=== PATIENT | female | born 1975 | race Caucasian/White ===

== ENCOUNTER 2016-04-07 18:40 | Emergency (ER) | payer MEDICAID ==
[~2016-04-07] VITALS: Ht 165.1 cm; Wt 80.0 kg
[~2016-04-07 18:40] MED LIST: DOXY100T PO
[2016-04-07 18:44] VITALS: BP 128/79; PULSE 79; RESP 15; TEMP 98.2; O2SAT 98
--- NOTE | 2016-04-07 20:15 | PD ---
HPI Chief Complaint: Pain: Acute or Chronic Time Seen by Provider: 20:09 Travel History International Travel<30 days: No Contact w/Intl Traveler<30days: No Traveled to known affect area: No History of Present Illness HPI 40-year-old white female presents to emergency department with a one-week history of lower back pain. She states that the pain has progressively come on without injury. She does report a history of kidney stones in the past. She states that she was unsure whether this was her kidneys or possibly her back. She has been drinking a large amount of cranberry juice. She states the pain is moderate but can be severe with movement or laying. She states that the pain to be so severe it causes her to feel nausea. She denies any vomiting. No dysuria or frequency. No hematuria. No abdominal pain. No numbness, tingling or weakness. No trauma. PFSH Past Medical History Narrative Medical Kidney stones, ovarian cysts Blood Disorders: No Cancer: No Cardiovascular Problems: No Diabetes: No Diminished Hearing: No Endocrine: No Genitourinary: No Immune Disorder: No Musculoskeletal: Yes (RIGHT HAND SURGERY) Neurologic: No Psychiatric: No Reproductive: Yes Respiratory: No Immunizations Current: No Thyroid Disease: No Tetanus Vaccination: < 5 Years ?: Unknown LMP: 03/17/16 : 4 Para: 4 Miscarriage: 1 : 0 Ovarian Cysts: Yes (BILATERAL ) Past Surgical History Narrative Surgical Left hand surgery, left salpingo-oophorectomy Gynecologic Surgery: Yes (left ovary removed) Other Surgery: Yes (olvary removed ) Social History Alcohol Use: No Tobacco Use: Yes (3 cigarettes day ) Substance Use: No Allergies-Medications (Allergen,Severity, Reaction): Coded Allergies: No Known Allergies (Verified , 09/16/15) Reported Meds & Prescriptions Reported Meds & Active Scripts Active Flexeril (Cyclobenzaprine HCl) 10 Mg Tab 10 Mg PO TID Diclofenac Sodium DR (Diclofenac Sodium) 50 Mg Tabdr 50 Mg PO TID Doxycycline Hyclate 100 mg (Doxycycline Hyclate) 100 Mg Tab 100 Mg PO BID 14 Days Review of Systems Except as stated in HPI: all other systems reviewed are Neg Physical Exam Narrative GENERAL: Well-developed, well-nourished in no acute distress. Nontoxic appearing. HEAD: Normocephalic, atraumatic. EYES: Pupils equal round and reactive. Extraocular motions intact. No scleral icterus. No injection or drainage. ENT: TMs clear without erythema. The external auditory canals clear. Nose: clear . Posterior pharynx is pink and moist. No tonsillar edema or exudate. Uvula midline. Airway patent. NECK: Trachea midline.Supple, nontender, moves head freely. No central bony tenderness or spasm. CARDIOVASCULAR: Regular rate and rhythm without murmurs, gallops, or rubs. RESPIRATORY: Clear to auscultation. Breath sounds equal bilaterally. No wheezes , rales, or rhonchi. GASTROINTESTINAL: Abdomen soft, non-tender, nondistended. No hepato-splenomegaly , or palpable masses. No guarding. EXTREMITIES: No clubbing, cyanosis, or edema. No joint tenderness, effusion, or edema noted. BACK: No central bony tenderness to palpation of the dorsal lumbar spine. Patient does have reproducible lumbar paraspinal tenderness. No gross spasm. Sits up in bed at 90. No saddle anesthesia. Without deformity or crepitance. No flank tenderness. Data Data Last Documented VS Vital Signs Date Time Temp Pulse Resp B/P Pulse Ox O2 Delivery O2 Flow Rate FiO2 04/07/16 18:44 98.2 79 15 128/79 98 Orders Urinalysis - C+S If Indicated (04/07/16 20:07) Acetamin-Hydrocod 325-5 Mg ([place] 5-325 (04/07/16 22:00) Cyclobenzaprine (Flexeril) (04/07/16 22:00) Labs Laboratory Tests Test 04/07/16 21:00 Urine Color YELLOW Urine Turbidity HAZY Urine pH 6.5 Urine Specific [place] 1.021 Urine Protein TRACE mg/dL Urine Glucose (UA) NEG mg/dL Urine Ketones NEG mg/dL Urine Occult Blood NEG Urine Nitrite NEG Urine Bilirubin NEG Urine Urobilinogen LESS THAN 2.0 MG/DL Urine Leukocyte Esterase NEG Urine RBC LESS THAN 1 /hpf Urine WBC 1 /hpf Urine Squamous Epithelial 5 /hpf Cells Urine Mucus FEW /lpf Microscopic Urinalysis Comment CULT NOT INDICATED MDM Medical Decision Making Medical Screen Exam Complete: Yes Emergency Medical Condition: Yes Medical Record Reviewed: Yes Interpretation(s) Laboratory Tests Test 04/07/16 21:00 Urine Color YELLOW Urine Turbidity HAZY Urine pH 6.5 Urine Specific [place] 1.021 Urine Protein TRACE mg/dL Urine Glucose (UA) NEG mg/dL Urine Ketones NEG mg/dL Urine Occult Blood NEG Urine Nitrite NEG Urine Bilirubin NEG Urine Urobilinogen LESS THAN 2.0 MG/DL Urine Leukocyte Esterase NEG Urine RBC LESS THAN 1 /hpf Urine WBC 1 /hpf Urine Squamous Epithelial 5 /hpf Cells Urine Mucus FEW /lpf Microscopic Urinalysis Comment CULT NOT INDICATED Differential Diagnosis MDM: High Differential diagnoses: AAA,Fracture, sprain, strain, HNP, nerve or vascular injury, epidural abscess, pilonidal cyst, pyelonephritis, UTI, nephrolithiasis, ureterolithiasis Narrative Course Urinalysis obtained. Urinalysis negative. Patient is given Lortab 5 milligram by mouth and Flexeril 10 mg by mouth. This is back pain Diagnosis Primary Impression: Back pain Qualified Code: M54.5 - Acute bilateral low back pain without sciatica Patient Instructions: General Instructions, Narcotic given in the ED Departure Forms: Tests/Procedures, Work Release Special Instructions: No work 2-3 days. Med/Other Pt SpecificInfo: Prescription(s) given Scripts Cyclobenzaprine (Flexeril)10 Mg Tab10 Mg PO TID #30 TAB Prov:Delroy Haji MD 04/07/[address] 50 Mg Tabdr50 Mg PO TID #30 TAB Prov:Delroy Haji MD 04/07/16 Disposition: 01 DISCHARGE HOME Condition: Stable Alfred Seymour Apr 07, 2016 20:15
[2016-04-07 21:51] LABS: BLOOD, URINE NEG (NEG); COMMENT (UR) CULT NOT INDICATED; CULTURE IF INDICATED CULT NOT INDICATED; GLUCOSE,URINE NEG (NEG); KETONE, URINE NEG (NEG); MUCUS URINE FEW /lpf (OCC); NITRITE,URINE NEG (NEG); PH, URINE 6.5 (5.0-8.5); SQUAMOUS EPITHELIAL CELL URINE 5 /hpf (0-5); URINE COLOR YELLOW (YELLW/STRAW)
[2016-04-07] MEDS ORDERED: DICL50TA3 PO (21:58)
[2016-04-07] MEDS ORDERED: CYCL1TAB29 PO (21:58)
[2016-04-07] MEDS ORDERED: ACETAMINOPHEN/HYDROcodone 325 MG/5 MG TAB PO ONE (22:00)
[2016-04-07] MEDS ORDERED: CYCLOBENZAPRINE HCL 10 MG TAB PO ONE (22:00)
== END 2016-04-07 22:08 | disposition home or self-care (01) ==
LOC: NEPB 18:40
DX: M54.5 Low back pain (principal); Z87.442 Personal history of urinary calculi; F17.210 Nicotine dependence, cigarettes, uncomplicated
CPT/HCPCS: 81001; 99283

== ENCOUNTER 2017-08-30 20:43 | Emergency (ER) | payer MEDICAID ==
[~2017-08-30] VITALS: Ht 165.1 cm; Wt 90.0 kg
[~2017-08-30 20:43] MED LIST changes: +CYCL10TA PO; +DICL50TA3 PO
[2017-08-30] MEDS ORDERED: IOHEXOL 350 MG/ML 10 ML VIAL (for RAD DIAG) IVCONTRAST ONE (20:44)
[2017-08-30 21:10] VITALS: BP 153/93; PULSE 114; RESP 20; O2SAT 98
[2017-08-30] MEDS ORDERED: SODIUM CHLOR 0.9% 1000 ML INJ 1,000 ML IV SCH (21:51)
--- NOTE | 2017-08-30 21:57 | PD ---
HPI Chief Complaint: Chest Pain Time Seen by Provider: 21:18 Travel History International Travel<30 days: No Contact w/Intl Traveler<30days: No Traveled to known affect area: No History of Present Illness HPI 42-year-old female presents emergency department with 3 week history of upper respiratory congestion, sinus drainage, itching eyes, postnasal drip, neck swelling, and cough and wheeze. Patient has been seen 3 times a [facility] without improvement. She was treated with an antibiotic, prednisone , [place], and albuterol metered-dose inhaler without significant improvement. Patient states her cough is nonproductive. She is most concerned of her neck swelling, which is nontender. She denies significant fever, chills , or other symptoms. She does have chest congestion and wheezing, as well as sinus pressure and headache. She is concerned that she just does not seem to get better despite treatment. She complains of bilateral eyelid itching and rash as well. Patient's pain is 3 out of 10. She denies difficulty swallowing or breathing in terms of her throat. She has no sore throat. She has no ear pain or drainage. She was prescribed Flonase but could not take it as it "burned her nostrils out". Patient continues to smoke. She is not taking an anti-allergy medication other than the prednisone. She has no known drug allergies. PFSH Past Medical History Blood Disorders: No Cancer: No Cardiovascular Problems: No Chest Pain: Yes Diabetes: No Diminished Hearing: No Endocrine: No Gastrointestinal Disorders: No Genitourinary: No Immune Disorder: No Implanted Vascular Access Dvce: No Musculoskeletal: Yes (RIGHT HAND SURGERY) Neurologic: No Psychiatric: No Reproductive: Yes Respiratory: No Immunizations Current: No Thyroid Disease: No ?: Unknown : 4 Para: 4 Miscarriage: 1 : 0 Ovarian Cysts: Yes (BILATERAL ) Past Surgical History Gynecologic Surgery: Yes (left ovary removed) Other Surgery: Yes (olvary removed ) Social History Alcohol Use: No Tobacco Use: Yes (3 cigarettes day ) Substance Use: No Allergies-Medications (Allergen,Severity, Reaction): Coded Allergies: No Known Allergies (Verified , 09/16/15) Reported Meds & Prescriptions Reported Meds & Active Scripts Active Flexeril (Cyclobenzaprine HCl) 10 Mg Tab 10 Mg PO TID Diclofenac Sodium DR (Diclofenac Sodium) 50 Mg Tabdr 50 Mg PO TID Doxycycline Hyclate 100 mg (Doxycycline Hyclate) 100 Mg Tab 100 Mg PO BID 14 Days Review of Systems Except as stated in HPI: all other systems reviewed are Neg General / Constitutional: No: Fever, Chills Eyes: No: Visual changes HENT: Positive: Headaches, Rhinitis, Rhinorrhea, Congestion, Neck Pain, Other ( See history of present illness per), No: Vertigo, Lightheadedness, Sore Throat, Nosebleed, Neck Stiffness, Masses, Gingival Bleeding, Dental Difficulties, Ear Discharge, Earache Cardiovascular: No: Chest Pain or Discomfort Respiratory: Positive: Cough, Shortness of Breath, Wheezing, No: Sneezing Gastrointestinal: No: Nausea, Vomiting, Diarrhea, Abdominal Pain Genitourinary: No: Dysuria Musculoskeletal: No: Pain Skin: No Rash Neurologic: No: Weakness Psychiatric: No: Depression Endocrine: No: Polydipsia Hematologic/Lymphatic: No: Easy Bruising Physical Exam Narrative GENERAL: Patient appears anxious, but otherwise speaking in full sentences and in no obvious distress per SKIN: Warm and dry. Normal color. Normal turgor. Patient does have some mild rash to the right eyelids, but not the left. HEAD: Atraumatic. Normocephalic. Sinuses are full and congested with palpation and percussion but not painful EYES: Pupils equal and round. No scleral icterus. No injection or drainage. ENT: No nasal bleeding or discharge. Mucous membranes pink and moist. TMs are clear bilaterally. Patient has clear rhinitis. Turbinates are swollen bilaterally with inspection of the nares. Posterior pharynx is unremarkable without significant swelling or erythema or postnasal drip noted. NECK: Trachea midline. Supple and nontender. Patient complains of swelling and tenderness although there is no point tenderness or palpable lymphadenopathy. This is difficult to assess due to the patient's body habitus. CARDIOVASCULAR: Regular rate and rhythm. Tachycardic at 114 bpm. No murmurs appreciated. Normal rhythm. RESPIRATORY: No accessory muscle use. Mild diffuse wheezing throughout to auscultation. Breath sounds equal bilaterally. GASTROINTESTINAL: Abdomen soft, non-tender, nondistended. Hepatic and splenic margins not palpable. MUSCULOSKELETAL: Extremities without clubbing, cyanosis, or edema. No obvious deformities. NEUROLOGICAL: Awake and alert. No obvious cranial nerve deficits. Motor grossly within normal limits. Five out of 5 muscle strength in the arms and legs. Normal speech. PSYCHIATRIC: Appropriate mood and affect; insight and judgment normal. Data Data Last Documented VS Vital Signs Date Time Temp Pulse Resp B/P (MAP) Pulse Ox O2 Delivery O2 Flow Rate FiO2 08/30/17 21:10 114 20 153/93 (113) 98 Orders Orders Complete Blood Count With Diff (08/30/17 21:51) Comprehensive Metabolic Panel (08/30/17 21:51) Ecg Monitoring (08/30/17 21:51) Iv Access Insert/Monitor (08/30/17 21:51) Oximetry (08/30/17 21:51) Diphenhydramine Inj (Benadryl Inj) (08/30/17 22:00) Methylprednisolone So Succ Inj (Solumedr (08/30/17 22:00) Famotidine Inj (Pepcid Inj) (08/30/17 22:00) Albuterol-Ipratropium Neb (Duoneb Neb) (08/30/17 22:00) Sodium Chlor 0.9% 1000 Ml Inj (Ns 1000 M (08/30/17 21:51) Sodium Chloride 0.9% Flush (Ns Flush) (08/30/17 22:00) Ct Soft Tiss Neck W Iv Cont (08/30/17 21:51) Chest, Single Ap (08/30/17 22:01) Prothrombin Time / Inr (Pt) (08/30/17 22:04) Act Partial Throm Time (Ptt) (08/30/17 22:04) Ct Pulmonary Angiogram (08/30/17 22:04) Labs Laboratory Tests Test 08/30/17 22:00 White Blood Count 16.2 TH/MM3 Red Blood Count 4.52 MIL/MM3 Hemoglobin 13.7 GM/DL Hematocrit 39.9 % Mean Corpuscular Volume 88.3 FL Mean Corpuscular Hemoglobin 30.3 PG Mean Corpuscular Hemoglobin Concent 34.4 % Red Cell Distribution Width 13.5 % Platelet Count 348 TH/MM3 Mean Platelet Volume 7.9 FL Neutrophils (%) (Auto) 63.0 % Lymphocytes (%) (Auto) 27.0 % Monocytes (%) (Auto) 6.2 % Eosinophils (%) (Auto) 2.7 % Basophils (%) (Auto) 1.1 % Neutrophils # (Auto) 10.2 TH/MM3 Lymphocytes # (Auto) 4.4 TH/MM3 Monocytes # (Auto) 1.0 TH/MM3 Eosinophils # (Auto) 0.4 TH/MM3 Basophils # (Auto) 0.2 TH/MM3 CBC Comment DIFF FINAL Differential Comment Prothrombin Time 9.4 SEC Prothromb Time International Ratio 0.9 RATIO Activated Partial Thromboplast Time 22.6 SEC Blood Urea Nitrogen 19 MG/DL Creatinine 1.37 MG/DL Random Glucose 104 MG/DL Total Protein 7.6 GM/DL Albumin 3.8 GM/DL Calcium Level 9.0 MG/DL Alkaline Phosphatase 118 U/L Aspartate Amino Transf (AST/SGOT) 15 U/L Alanine Aminotransferase (ALT/SGPT) 22 U/L Total Bilirubin 0.2 MG/DL Sodium Level 140 MEQ/L Potassium Level 3.2 MEQ/L Chloride Level 103 MEQ/L Carbon Dioxide Level 27.4 MEQ/L Anion Gap 10 MEQ/L Estimat Glomerular Filtration Rate 42 ML/MIN [facility] Medical Decision Making Medical Screen Exam Complete: Yes Emergency Medical Condition: Yes Differential Diagnosis Allergic rhinitis. Neck swelling. Lymphadenopathy. Wheezy bronchitis. Asthma. COPD. PE. Narrative Course Patient is anxious but appears medically stable at time of exam Labs ordered including CBC and CMP. IV access is obtained and the patient is given 25 mg diphenhydramine IV, 20 mg Pepcid IV, 125 mg methylprednisone IV, and 1000 mL of normal saline bolus. Chest x-ray is ordered as well as CT of the soft tissues of the neck with IV contrast. Coagulation studies and CTA is ordered as the patient is hypertensive and tachycardic although her O2 sats are normal. This will rule out PE. CBC shows a leukocytosis of 16.2. Neutrophils are elevated at 10.2 Coagulation study shows a PT of 9.4, INR 0.9. Chemistries show potassium slightly low at 3.2, BUN 19, creatinine is elevated at 1.37, GFR is 42, alk phos is elevated at 118 otherwise no significant findings Chest x-ray showed no acute process per radiologist. CT is still pending. Patient is discussed with Dr. Mendoza who assumes care of the patient at 2300 hrs. She will determine final disposition and treatment Condition: Dillon Modi August 30, 2017 21:57
[2017-08-30] MEDS ORDERED: SODIUM CHLORIDE 0.9% FLUSH 10 ML FLUSH IV FLUSH PRN (22:00)
[2017-08-30] MEDS ORDERED: FAMOTIDINE 20 MG/2 ML VIAL IV PUSH ONE (22:00)
[2017-08-30] MEDS ORDERED: methylPREDNISolone SOD SUCC 125 MG/2 ML VIAL IV PUSH ONE (22:00)
[2017-08-30] MEDS ORDERED: diphenhydrAMINE HCL 50 MG/ML VIAL IVP ONE (22:00)
[2017-08-30] MEDS ORDERED: RESP: ALBUTEROL 2.5 MG/IPRATROPIUM 0.5 MG NEB (SCH) INH ONE (22:00)
[2017-08-30 22:14] LABS: AUTOMATED NEUTROPHIL # 10.2 TH/MM3 (1.8-7.7); BASOPHIL # 0.2 TH/MM3 (0-0.2); BASOPHIL % 1.1 % (0.0-2.0); EOSINOPHIL # 0.4 TH/MM3 (0-0.4); EOSINOPHIL % 2.7 % (0.0-4.0); HEMATOCRIT 39.9 % (35.0-46.0); HEMOGLOBIN 13.7 GM/DL (11.6-15.3); LYMPHOCYTE # 4.4 TH/MM3 (1.0-4.8); MEAN CELL VOLUME 88.3 FL (80.0-100.0); MEAN CORPUSCULAR HEMOGLOBIN 30.3 PG (27.0-34.0); MEAN CORPUSCULAR HGB CONC 34.4 % (32.0-36.0); MEAN PLATELET VOLUME 7.9 FL (7.0-11.0); MONO % 6.2 % (0.0-8.0); PLATELET COUNT 348 TH/MM3 (150-450); RED BLOOD COUNT 4.52 MIL/MM3 (4.00-5.30); RED CELL DISTRIBUTION WIDTH 13.5 % (11.6-17.2); WHITE BLOOD COUNT 16.2 TH/MM3 (4.0-11.0)
[2017-08-30 22:34] LABS: INTERNATIONAL NORMALIZED RATIO 0.9 RATIO; PROTHROMBIN TIME - PATIENT 9.4 SEC (9.8-11.6)
[2017-08-30 22:44] LABS: ALBUMIN 3.8 GM/DL (3.4-5.0); AST (GOT) 15 U/L (15-37); BICARBONATE 27.4 MEQ/L (21.0-32.0); BLOOD UREA NITROGEN 19 MG/DL (7-18); CHLORIDE 103 MEQ/L (98-107); CREATININE 1.37 MG/DL (0.50-1.00); GLOMERULAR FILTRATION RATE 42 ML/MIN (>89); GLUCOSE,RANDOM 104 MG/DL (74-106); SODIUM (NA) 140 MEQ/L (136-145)
[2017-08-30 22:47] LABS: ALKALINE PHOSPHATASE 118 U/L (45-117); ALT (GPT) 22 U/L (10-53); TOTAL BILIRUBIN ADULT 0.2 MG/DL (0.2-1.0); TOTAL PROTEIN 7.6 GM/DL (6.4-8.2)
--- NOTE | 2017-08-30 22:50 | RADRPT ---
EXAM DATE: 08/30/2017 10:47 PM EDT AGE/SEX: 42 years / Female INDICATIONS: Shortness of breath. CLINICAL DATA: This is the patient's initial encounter. Patient reports that signs and symptoms have been present for 1 day and indicates a pain score of 0/10. MEDICAL/SURGICAL HISTORY: None. None. COMPARISON: No prior [facility] exams available for comparison. FINDINGS: A single AP view of the chest demonstrates the lungs to be symmetrically aerated without evidence of mass, infiltrate or effusion. The cardiomediastinal contours are unremarkable. Osseous structures a re intact. CONCLUSION: 1. No acute cardiopulmonary disease. Electronically signed by: Jamie Roberts MD 08/30/2017 10:48 PM EDT
--- NOTE | 2017-08-31 00:18 | RADRPT ---
EXAM DATE: 08/31/2017 12:07 AM EDT AGE/SEX: 42 years / Female INDICATIONS: Chest pain with shortness of breath. CLINICAL DATA: This is the patient's initial encounter. Patient reports that signs and symptoms have been present for 3 weeks and indicates a pain score of 3/10. MEDICAL/SURGICAL HISTORY: . . RADIATION DOSE: 18.49 CTDI (mGy) COMPARISON: No prior exams available for comparison. TECHNIQUE: Volumetric scanning was performed using a multi-row detector CT scanner during bolus infu maritza of 100 ml Omnipaque 350 (iohexol) nonionic water-soluble contrast as a cumulative dose for mult iple exams. The data was post processed with a variety of visualization algorithms including full vol ume maximum intensity projection and sliding thin slab reformation. Using automated exposure control and adjustment of the mA and/or kV according to patient size, radiation dose was kept as low as reas onably achievable to obtain optimal diagnostic quality images. FINDINGS: The lungs are clear without infiltrate, nodule, or mass. There is no pleural effusion. No appreciab le pathological adenopathy is seen within the mediastinum. There is no evidence of PE for technique. There is a tiny subcentimeter cyst in the right hepatic lobe. CONCLUSION: Unremarkable study. Electronically signed by: Kathy Gomez MD 08/31/2017 12:17 AM EDT
--- NOTE | 2017-08-31 00:23 | RADRPT ---
EXAM DATE: 08/31/2017 12:10 AM EDT AGE/SEX: 42 years / Female INDICATIONS: Neck swelling with sinus pressure past 3 weeks. CLINICAL DATA: This is the patient's initial encounter. Patient reports that signs and symptoms have been present for 3 weeks and indicates a pain score of 8/10. MEDICAL/SURGICAL HISTORY: . . RADIATION DOSE: 14.21 CTDI (mGy) COMPARISON: No prior exams available for comparison. TECHNIQUE: Helical acquisition was performed using a multirow detector CT scanner during the adminis tration of 100 ml Omnipaque 350 (iohexol) nonionic water-soluble contrast as a cumulative dose for m ultiple exams. Using automated exposure control and adjustment of the mA and/or kV according to willie ent size, radiation dose was kept as low as reasonably achievable to obtain optimal diagnostic qualit y images. FINDINGS: There is no evidence for any appreciable pathological adenopathy in the patient's neck. The parotid glands, submandibular glands, thyroid glands appear intact. The left submandibular gland is nonvisual ized possibly absent surgically. A marker placed at this site which is the area of clinical concern a nd there are small benign-appearing lymph nodes in the patient's neck bilaterally the largest one jose miguel sures almost 1.2 cm on the left possibly corresponding to the area of swelling. The visceral compartm ent is grossly intact without infiltrating mass. The visualized sinuses are clear. CONCLUSION: Left submandibular gland is not visualized possibly absent surgically. Electronically signed by: Kathy Gomez MD 08/31/2017 12:21 AM EDT
[2017-08-31 02:15] VITALS: BP_SYST 126; BP_SYST 136; BP_DIAS 82; BP_DIAS 87; PULSE 106; PULSE 76; RESP 16; RESP 18; O2SAT 96; O2SAT 97
[2017-08-31] MEDS ORDERED: MEDR4PAK PO (03:29)
[2017-08-31] MEDS ORDERED: ZOFR4TAB3 SL (03:29)
--- NOTE | 2017-08-31 03:31 | PD ---
Data Data Last Documented VS Vital Signs Date Time Temp Pulse Resp B/P (MAP) Pulse Ox O2 Delivery O2 Flow Rate FiO2 08/31/17 02:15 106 16 136/87 (103) 96 Room Air Orders Orders Complete Blood Count With Diff (08/30/17 21:51) Comprehensive Metabolic Panel (08/30/17 21:51) Ecg Monitoring (08/30/17 21:51) Iv Access Insert/Monitor (08/30/17 21:51) Oximetry (08/30/17 21:51) Diphenhydramine Inj (Benadryl Inj) (08/30/17 22:00) Methylprednisolone So Succ Inj (Solumedr (08/30/17 22:00) Famotidine Inj (Pepcid Inj) (08/30/17 22:00) Albuterol-Ipratropium Neb (Duoneb Neb) (08/30/17 22:00) Sodium Chlor 0.9% 1000 Ml Inj (Ns 1000 M (08/30/17 21:51) Sodium Chloride 0.9% Flush (Ns Flush) (08/30/17 22:00) Chest, Single Ap (08/30/17 22:01) Prothrombin Time / Inr (Pt) (08/30/17 22:04) Act Partial Throm Time (Ptt) (08/30/17 22:04) Ct Pulmonary Angiogram (08/30/17 22:04) Ct Soft Tiss Neck W Iv Cont (08/31/17 ) Iohexol 350 Inj (Omnipaque 350 Inj) (08/30/17 20:44) Thyroid Stimulating Hormone (08/31/17 02:11) Ed Discharge Order (08/31/17 03:23) Labs Laboratory Tests Test 08/30/17 22:00 White Blood Count 16.2 TH/MM3 Red Blood Count 4.52 MIL/MM3 Hemoglobin 13.7 GM/DL Hematocrit 39.9 % Mean Corpuscular Volume 88.3 FL Mean Corpuscular Hemoglobin 30.3 PG Mean Corpuscular Hemoglobin Concent 34.4 % Red Cell Distribution Width 13.5 % Platelet Count 348 TH/MM3 Mean Platelet Volume 7.9 FL Neutrophils (%) (Auto) 63.0 % Lymphocytes (%) (Auto) 27.0 % Monocytes (%) (Auto) 6.2 % Eosinophils (%) (Auto) 2.7 % Basophils (%) (Auto) 1.1 % Neutrophils # (Auto) 10.2 TH/MM3 Lymphocytes # (Auto) 4.4 TH/MM3 Monocytes # (Auto) 1.0 TH/MM3 Eosinophils # (Auto) 0.4 TH/MM3 Basophils # (Auto) 0.2 TH/MM3 CBC Comment DIFF FINAL Differential Comment Prothrombin Time 9.4 SEC Prothromb Time International Ratio 0.9 RATIO Activated Partial Thromboplast Time 22.6 SEC Blood Urea Nitrogen 19 MG/DL Creatinine 1.37 MG/DL Random Glucose 104 MG/DL Total Protein 7.6 GM/DL Albumin 3.8 GM/DL Calcium Level 9.0 MG/DL Alkaline Phosphatase 118 U/L Aspartate Amino Transf (AST/SGOT) 15 U/L Alanine Aminotransferase (ALT/SGPT) 22 U/L Total Bilirubin 0.2 MG/DL Sodium Level 140 MEQ/L Potassium Level 3.2 MEQ/L Chloride Level 103 MEQ/L Carbon Dioxide Level 27.4 MEQ/L Anion Gap 10 MEQ/L Estimat Glomerular Filtration Rate 42 ML/MIN Thyroid Stimulating Hormone 3rd Gen 2.550 uIU/ML [facility] Medical Record Reviewed: Yes Supervised Visit with NICOLE: Yes Diagnosis Primary Impression: Allergic angioedema Qualified Codes: T78.3XXA - Angioneurotic edema, initial encounter Referrals: Primary Care Physician 1 day Patient Instructions: General Instructions Departure Forms: Tests/Procedures Additional Instruction: Follow-up with primary care provider call office in a.m. to schedule follow-up appointment Take medications as prescribed Use [id number] Zantac 150 twice daily for 7 days Use Benadryl [id number] either liquid Benadryl children's or tablets at this capsule form 25-50 mg as often as every 4-6 hours as needed for allergic type symptoms Increase fluid hydration Avoid overheating avoid hot foods and beverages or hot environments Return the emergency department for any concerns or change in condition Med/Other Pt SpecificInfo: Prescription(s) given Scripts Ondansetron Odt (Zofran Odt) 4 Mg Tab 4 MG SL Q6HR Y for Nausea/Vomiting, #10 TAB 0 Refills Prov: Saba Mendoza MD 08/31/17 Methylprednisolone Dosepak (Medrol Dosepak) 4 Mg Dspk 4 MG PO DIRECTED, #1 DSPK 0 Refills Per Pharmacist direction Prov: Saba Mendoza MD 08/31/17 Disposition: 01 DISCHARGE HOME Condition: Stable Saba Mendoza MD August 31, 2017 03:31
== END 2017-08-31 03:42 | disposition home or self-care (01) ==
LOC: NEPC 20:43
DX: T78.3XXA Angioneurotic edema, initial encounter (principal); F17.210 Nicotine dependence, cigarettes, uncomplicated; R21 Rash and other nonspecific skin eruption; R22.1 Localized swelling, mass and lump, neck; R51 Headache
CPT/HCPCS: 70491; 71045; 71275; 80053; 84443; 85025; 85610; 85730; 96361; 96374; 96375; 99284; J1200; J2930; J7030; Q9967